=== PATIENT | female | born 1990 | race Caucasian/White ===

== ENCOUNTER 2021-06-22 01:12 | Day surgery (SDC) | payer OTHER, SELFPAY ==
[2021-06-17 13:16] VITALS: BMI 51.6
--- NOTE | 2021-06-17 13:28 | PC.NURSE ---
Report to the Outpatient Waiting Room, entrance under the green pavilion located off [facility], at time 0900 on date _06/21/2021. OR Time: 1100. - You and your visitor will be asked a series of questions to screen for COVID 19 for your protection. - Only one visitor is allowed at this time. - The patient visitor is requested to leave or wait in car when not with patient. - A mask is required within the hospital. Patients may have clear liquids (water, carbonated beverages, clear teas, apple juice) until 3 hours prior to surgery with a maximum of 20 ounces. - No food from midnight until time of surgery - Infants may have breast milk until 4 hours before surgery, infant formula 6 hours prior to surgery. - Children will be allowed to drink immediately following surgery. If applicable, please bring a bottle or sippy cup to assist with drinking. Juice, water, soda, and popsicles are readily available. For infants on formula, please bring formula the day of surgery. Pacifiers are allowed. Take the following medications with a SIP of water the morning of surgery: Wellbutrin Medications to discontinue per physician __Vitamins/supplements Date to take last dose____3 days Please no make-up, nail greenlandic, hairspray, perfume, deodorant, or body powder the day of surgery. No jewelry (including any body piercings) or valuables the day of surgery, leave them at home. Please take a shower or bath the night before, or the morning of, surgery with an antibacterial soap. Wear comfortable, loose fitting clothing. Children are encouraged to wear pajamas. - Jewelry must be removed prior to entering the operating room. Rings and piercings that are not removed may be cut off. - The hospital will not accept responsibility for valuables. - Please leave all valuables, including medications, at home the day of surgery. If you are going home after surgery, a licensed water taxi driver must drive you home. - NO public transportation without another adult. - We recommend that an adult stay with you for 24 hours following discharge. - We also recommend that you do not drive, make important decision, drink alcoholic beverages, or take any drugs that were not prescribed by your health care provider for at least 24 hours after your discharge time. For Pediatric surgeries, we recommend two adults accompany the child home (only one inside the building at this time). Follow any additional instructions given to you from your surgeon. If you or anyone in your household have experienced Covid symptoms in the past week, please notify your surgeon or the nurse liaison at the phone number below for possible testing. Telephone instructions given to ____patient and asked if any additional questions and then verbalized understanding. Patient advised to call surgeon office or pre surgery nurse liaison [phone] if any additional questions.
[2021-06-22] VITALS (7 sets, daily range): BP systolic 125–135; BP diastolic 77–87; PULSE 72–122; RESP 14–16; TEMP 36.6; O2SAT 97–100
[2021-06-22] MEDS: LACTATED RINGERS 1,000 ML 30 ML IV CONT (09:30)
[2021-06-22] MEDS: ACETAMINOPHEN 500 MG TABLET 1000 MG PO (09:49)
--- NOTE | 2021-06-22 10:04 | PM.IMHP ---
H&P: HPI History of Present Illness Date/Time: 06/22/21 10:00 Aida is a 31yo G0, LMP 06/03/21 who presents for scheduled surgery due to a new perineal bump . The lesion was hard to palpation and noticed about 3 months ago, did grow in size and why she presented for biopsy. She reports it eva itches, briceño, gets tender, and does bleed a small amount. It was biopsied 05/22/21 which showed granulation tissue but low grade dysplasia could not be ruled out. She has continued to notice a little blood with wiping; has not grown since the biopsy. Chief Complaint: perineal lesion Review of Systems Review of Systems: All systems reviewed & are unremarkable except as noted in HPI and below (HPI) [facility] Past Medical History Medical History Anxiety Depression Family History Family History Grandparent Diabetes mellitus Family history of cardiovascular disease Cerebrovascular accident Father Family history of elevated blood lipids Mother Family history of kidney disease Mother No problems noted. 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 Gender identity (if verbalized by the patient): Female Sexual Orientation (if Verbalized by the Patient): Straight or Heterosexual Spiritual care concerns: No Meds Home Medications and Allergies Home Medications Medication Instructions Recorded Confirmed Type bupropion HCl 300 mg 24 hr tablet, 300 mg PO QAM 05/22/21 06/17/21 History extended release melatonin 3 mg PO HS PRN 06/17/21 06/17/21 History metronidazole 0.75 % vaginal gel 1 appful VAGINAL DAILY 7 Days #70 g 06/17/21 06/17/21 Rx prenat.vits,chidi,edu-[id number] 1 tablet PO DAILY 06/17/21 06/17/21 History [ Vitamin] Allergies Allergy/AdvReac Type Severity Reaction Status Date / Time No Known Allergies Allergy Verified 06/17/21 13:09 Exam Const: General: cooperative, healthy appearing and no acute distress Nutritional Appearance: obese Resp: Effort & Inspection: normal respiratory effort Cardio: Rate: regular rate GI: Inspection: normal to inspection GI Palp: No abdominal tenderness and Yes Soft to palpation : Other: deferred to OR Skin: General skin exam: normal color Neuro: General: patient oriented x3 Extrem: General: normal to inspection Psych: Appearance: grossly normal Affect: normal affect Attitude: cooperative Assessment and Plan Assessment and plan (1) Perineal mass in female: Code(s): N90.89 - Other specified noninflammatory disorders of vulva and perineum Status: Acute Additional Plan - Proceed with left sided perineal wide local excision to remove the mass - Risks and benefits explained in detail and questions answered.
--- NOTE | 2021-06-22 10:04 | WPDHPUPDATE1 ---
History and Physical Update Update Date/Time: 06/22/21 10:04 History and Physical has been reviewed, including an updated exam of the patient. There are NO changes in the patient's condition. Risks, benefits, and alternatives have been discussed and questions answered. Patient agrees to proceed with procedure.
--- NOTE | 2021-06-22 10:11 | P.PNAN_ITS ---
Anes - Initial Pre Proc Eval Procedure: Operation Date: 06/22/21 11:00 Proposed Procedures p Excision Perineal Lesion - Mona Huffman MD Date/Time: 06/22/21 10:11 Surgeon: Mona Huffman MD Pre Op Diagnosis: perineal lesion Patient Data Age: 31 Gender: F Height: 1.63 m Weight: 136.8 kg Allergies Allergy/AdvReac Type Severity Reaction Status Date / Time No Known Allergies Allergy Verified 06/22/21 10:05 Home Medications Medication Instructions Recorded Confirmed Type bupropion HCl 300 mg 24 hr tablet, 300 mg PO QAM 05/22/21 06/22/21 History extended release melatonin 3 mg PO HS PRN 06/17/21 06/22/21 History metronidazole 0.75 % vaginal gel 1 appful VAGINAL DAILY 7 Days #70 g 06/17/21 06/22/21 Rx prenat.vits,chidi,avm-[id number] 1 tablet PO DAILY 06/17/21 06/22/21 History [ Vitamin] Patient hx anesthesia problems: none Family hx anesthesia problems: none Results Review: All pre-operative results and documents have been reviewed as part of the pre-operative evaluation. [facility] Past Medical History Medical History Anxiety Depression Family History Family History Grandparent Diabetes mellitus Family history of cardiovascular disease Cerebrovascular accident Father Family history of elevated blood lipids Mother Family history of kidney disease Mother No problems noted. 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 Gender identity (if verbalized by the patient): Female Sexual Orientation (if Verbalized by the Patient): Straight or Heterosexual Spiritual care concerns: No Anes - Eval Final PreProcedure Day of Procedure 06/22/21 10:11 Patient weight: super morbidly obese Heart: regular rate and rhythm Lungs: clear to auscultation and normal air movement Airway: Mallampati scale class II Neurological: alert and oriented Last oral intake: >/= 8 hours ASA classification: III Emergent: no Anesthetic plan: proceed Anesthesia type and monitoring: general GIVS and LMA and standard monitoring Results Review: All pre-operative results and documents have been reviewed as part of the pre-operative evaluation. Informed Consent: The patient's anesthetic plan and its attendant risks and benefits were discussed with the patient/family/POA. Questions were solicited and answers provided to the satisfaction of the patient/family/POA.
[2021-06-22] MEDS: metroNIDAZOLE 500 MG/ISO 100ML 500 MG/100 ML BAG 100 MG IVPB (11:19)
[2021-06-22] MEDS: KETOROLAC 30 MG/ML VIAL (*BKC) IV PUSH (11:34)
--- NOTE | 2021-06-22 12:22 | W.PM.PROC2 ---
Procedure Note - Detailed Date of Procedure 06/22/21 Pre-op Diagnosis Perineal lesion Post-op Diagnosis Other (Perianal abscess) Procedure Performed Perineal wide local excision Surgeon Mona Huffman MD Anesthesia General Indications Aida is a 31yo G0, LMP 06/03/21 who presents for scheduled surgery due to a new perineal bump . The lesion was hard to palpation and noticed about 3 months ago, did grow in size and why she presented for biopsy. She reports it eva itches, briceño, gets tender, and does bleed a small amount. It was biopsied 05/22/21 which showed granulation tissue but low grade dysplasia could not be ruled out. She has continued to notice a little blood with wiping; has not grown since the biopsy Findings Left perineal lesion measuring 0.8x1cm, fleshy in nature; 5mm margins obtained. Purulent discharged noted. Perianal abscess that extended into pts left buttock, ~20cc of purulent discharge expressed. Perianal abscess track copiously irrigated with saline. Good hemostasis. 10cc of 0.5% lidocaine plain placed for better pain control at end of case. 4 stay sutures were placed to help keep incision approximated Description of Procedure Aida was taken to the operating room where she was placed under general anesthesia without complications. She was then prepped and draped in the usual sterile fashion in the dorsal lithotomy position with her legs in low Marciano stirrups. A time-out was performed and she was given a Flagyl 500 mg IV once when purulent discharge was noted from the lesion. The perineal lesion was measured and marked for wide local excision. Using a 15 blade the excision was made in the skin in an elliptical pattern removing the perineal lesion. The edges were cauterized using Bovie cautery. The excised skin was grasped using Allis clamps and the underlying tissues was removed using the scalpel. More purulent discharge was noted and the area was probed. The lesion tract towards her left buttock approximately 2-3 cm and approximally 20 cc of purulent discharge was removed. The abscess was irrigated using over 200 cc of saline. My gloves were changed. The incision was made hemostatic using bovie cautery. The deeper edges of the incision was reapproximated using 2 0 Vicryl. The skin was then reapproximated using 3-0 Vicryl. Four stay sutures using 2-0 Prolene were placed over the incision. The incision was then infiltrated using 10cc of 0.5% plain Marcaine. Sponge, lap, instrument, and needle counts were correct at the end of the procedure. Patient tolerated the procedure well and was awoken from general anesthesia. She was taken to recovery with plans of same-day discharge home. She will be sent home on Augmentin twice daily for a week until she follows up in clinic. Estimated Blood Loss -30.0 Drains No Packing No Pathology Yes Complications No immediate complications Condition Stable Disposition Same day [facility] Billing Surgery - Charge Forward: Surgery Billing
== END 2021-06-22 13:50 | disposition home or self-care (01) ==
PROVIDERS: PCP Student in an Organized Health Care Education/Training Program; Visit Provider Obstetrics & Gynecology
PROC: (CPT 11424; principal; 2021-06-22 11:00)
DX: L02.215 Cutaneous abscess of perineum (principal); F41.8 Other specified anxiety disorders; E66.01 Morbid (severe) obesity due to excess calories; Z68.43 Body mass index [BMI] 50.0-59.9, adult
CPT/HCPCS: 11424; 12042; 88304; 88305; A9270; J1100; J1885; J2250; J2405; J2704; J3010; J7120

== ENCOUNTER 2021-12-28 23:13 | Emergency (ER) | payer OTHER, SELFPAY ==
--- NOTE | ~2021-12-28 | CT_ITS ---
EXAMINATION: CTA chest PE abdomen pel DATE: 12/29/2021 03:17 INDICATION: Chest pain, shortness of breath and upper abdominal pain. TECHNIQUE: Computed tomography (CT) pulmonary angiogram of the chest was performed with 100 mL Omnipa que-350 intravenous contrast. Additional 3D reconstructions utilizing coronal maximum intensity proje ction (MIP) were performed. CT of the abdomen and pelvis was performed with intravenous contrast util izing the same contrast bolus following a short delay. Automated exposure control and iterative recon struction technique were employed. The dose-length product was 2414.40 mGy-cm. COMPARISON: None FINDINGS: Chest: Excellent contrast opacification of the pulmonary arteries. There is moderate streak artifact from de nse contrast in the superior vena cava and right atrium. Mild scattered respiratory motion artifact w hich does not significantly limit evaluation. No pulmonary embolism. Lungs are clear with no pneumoni a, pulmonary edema or pleural effusion. Heart size is normal. No pericardial effusion. Thoracic aorta is normal in caliber with no dissection. No pathologically enlarged thoracic lymphadenopathy. Abdomen/pelvis: Suture line along the greater curvature of the stomach consistent with prior sleeve gastrectomy. Live r, gallbladder, spleen, pancreas, bilateral adrenal glands and kidneys are normal. Bowels including t he appendix are normal. Bladder, anteverted uterus and bilateral adnexa are unremarkable. No free int raperitoneal gas or fluid. No pathologically enlarged abdominal or pelvic lymphadenopathy. Moderate t o severe disc height loss with degenerative endplate changes at L5-S1. Bones are otherwise unremarkab le. IMPRESSION: 1. No pulmonary embolism or other acute cardiopulmonary disease. 2. No acute intra-abdominal/pelvic process. Reviewed, dictated and finalized at location A. [employer] CONS[employer]ANT
--- NOTE | ~2021-12-28 | XR_ITS ---
EXAMINATION: XR chest 2V DATE: 12/29/2021 02:13 INDICATION: Chest pain, shortness of breath TECHNIQUE: PA and lateral views of the chest were obtained. COMPARISON: None FINDINGS: The lungs are clear with no focal airspace opacities, pulmonary edema, pleural effusion or pneumothor ax. The cardiomediastinal silhouette is normal. Visualized bones and soft tissues are unremarkable. IMPRESSION: 1. No acute cardiopulmonary disease. Reviewed, dictated and finalized at location A. 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
[2021-12-28 23:15] VITALS: BP 151/84; PULSE 100; RESP 14; TEMP 36.6; O2SAT 100
[2021-12-28 23:28] LABS: Basophils Percent Auto 0.4 % (0.2-1.2); Eosinophils Absolute Auto 0.1 K/mm3 (0-0.3); Eosinophils Percent Auto 1.6 % (0-4.4); Hematocrit 39.6 % (37.0-47.0); Hemoglobin 12.9 g/dL (12.0-15.0); Immature Granulocyte Absolute 0.02 K/mm3 (0.00-0.031); Immature Granulocyte Percent A 0.3 % (0-0.5); Lymphocytes Absolute Auto 2.42 K/mm3 (0.9-3.2); Lymphocytes Percent Auto 31.3 % (18.3-44.2); Mean Corpuscular HGB Conc 32.6 g/dl (32-36); Mean Corpuscular Hemoglobin 29.5 pg (26-34); Mean Corpuscular Volume 90.6 fl (80-100); Mean Platelet Volume 10.1 fl (7.4-10.4); Monocytes Absolute Auto 0.9 K/mm3 (0.1-0.6); Monocytes Percent Auto 11.9 % (2.6-8.5); Neutrophils Absolute Auto 4.2 K/mm3 (1.3-6.7); Neutrophils Percent Auto 54.5 % (45.5-73.1); Platelet Count Result 263 k/mm3 (150-375); Red Blood Count 4.37 M/mm3 (4.2-5.4); White Blood Count 7.7 K/mm3 (4.5-10.0)
[2021-12-28 23:38] LABS: Alanine Aminotransferase 104 U/L (6-35); Albumin Level 4.5 g/dL (3.5-5.1); Alkaline Phosphatase 91 U/L (38-126); Anion Gap 14 mmol/L (8-16); Aspartate Amino Transferase 52 U/L (14-36); Bilirubin,Total 0.6 mg/dL (0.2-1.3); Blood Urea Nitrogen 8 mg/dL (7-17); Calcium 9.6 mg/dL (8.4-10.2); Carbon Dioxide 21 mmol/L (22-30); Chloride 104 mmol/L (98-107); Estimated CRCL calculation 134 ml/min; Estimated Glomerular Filt Rate > 60; Glucose 105 mg/dL (65-110); Lipase 87 U/L (23-300); Potassium 3.7 mmol/L (3.4-5.0); Sodium 139 mmol/L (137-145)
--- NOTE | 2021-12-29 00:37 | ECG_ITS ---
Measurements Intervals Belle Rate: 78 P: 0 MI: 124 QRS: 12 QRSD: 99 T: 5 QT: 352 QTc: 402 Interpretive Statements SINUS RHYTHM WITH SINUS ARRHYTHMIA NORMAL ECG NO PREVIOUS ECG AVAILABLE FOR COMPARISON Electronically Signed On 12-29-2021 6:51:47 NANOTECHNOLOGY TECHNICIAN by Magan Mackay D.O.
--- NOTE | 2021-12-29 00:38 | ED.ABDPAIN ---
HPI - Abdominal Pain General Chief Complaint: Abdominal Pain <ENZO Davila Last Filed: 12/29/21 03:13> Stated Complaint: Abd pain post op three weeks <ENZO Davila Last Filed: 12/29/21 03:13> Time Seen by Provider: 12/29/21 00:14 <ENZO Davila Last Filed: 12/29/21 03:13> History of Present Illness HPI narrative: Patient is a 31-year-old female here for evaluation of upper abdominal pain for the past day and a half. Patient describes the pain as sharp but also like a pressure in the upper abdomen. Pain has been relatively constant but is worse after eating. Also notes nausea, bloating sensation, and radiation of the pain into her chest. The chest pain is worse with deep breaths. She spoke with her surgeon Dr. Manley at [facility], who recommended ED evaluation if her pain persisted after Protonix. Denies leg swelling, calf pain, fevers or chills, diarrhea or constipation. <ENZO Davila Last Filed: 12/29/21 03:13> Related Data Home Medications: Home Medications Medication Instructions Recorded Confirmed bupropion HCl 300 mg 24 hr tablet, 300 mg PO QAM 05/22/21 06/29/21 extended release (Wellbutrin XL) prenat.vits,chidi,spf-[id number] 1 tablet PO DAILY 06/17/21 06/29/21 <ENZO Davila Last Filed: 12/29/21 03:13> Allergies/Adverse Reactions: Allergies Allergy/AdvReac Type Severity Reaction Status Date / Time No Known Allergies Allergy Verified 12/29/21 00:23 <ENZO Davila Last Filed: 12/29/21 03:13> Review of Systems Review of Systems: Gen: Denies fevers or chills Eyes: Denies eye pain or visual change ENT: Denies congestion Respiratory: Reports shortness of breath. Denies cough CV: Reports chest pain. Denies palpitations GI: Reports abdominal pain and nausea. : denies burning, urgency, frequency or hematuria Musculoskeletal: Denies back pain or muscle pain Neuro: Denies numbness, tingling, weakness or focal weakness Skin: Denies rash Except as documented, all other systems reviewed and negative <Moni Sepulveda PA-C - Last Filed: 12/29/21 03:13> PMFSH Past Medical History Medical History: Medical History Anxiety Depression <Moni Sepulveda PA-C - Last Filed: 12/29/21 03:13> Family History Family History: Family History Grandparent Diabetes mellitus Family history of cardiovascular disease Cerebrovascular accident Father Family history of elevated blood lipids Mother Family history of kidney disease Mother No problems noted. 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 Obese. Head: Normocephalic and atraumatic. EYES: PERRLA/EOMI, conjunctivae clear NOSE: No nasal drainage EARS: External ear normal in appearance THROAT: Oropharynx is clear. Mucous membranes are moist. NECK: Supple. No adenopathy, no masses. RESPIRATORY: Airway patent, respirations nonlabored. Clear to auscultation bilaterally, no rales, rhonchi, wheezing. CARDIOVASCULAR: Regular rate and rhythm without murmurs, rubs, or gallops. ABDOMINAL: Tender to palpation in the epigastric region with no rebound tenderness or guarding. Normoactive hugo
[2021-12-29 00:45] LABS: Appearance Urine Slightly Cloudy (Clear); Bilirubin Urine 2+ (Negative); Blood Urine Negative (Negative); Color Urine Yellow (Yellow); Glucose Urine UA Negative (Negative); Ketones Urine 4+ mg/dL (Negative); Leukocyte Esterase Ur 1+ LEU/UL (Negative); Nitrate Urine Negative (Negative); Protein Urine Negative (Negative); Specific Grav Ur >= 1.030 (1.001-1.035); Urobilinogen Urine 0.2 mg/dL (<2.0); pH Urine 5.5 (5.0-9.0)
[2021-12-29 00:53] LABS: Bacteria Urine Trace /hpf; Mucus Urine Moderate /lpf; Squamous Epithelial Cell Urine Many /hpf (Few); WBC Urine 16-20 /hpf
[2021-12-29 00:59] LABS: Add Urine Microscopic? YES
[2021-12-29] MEDS: SODIUM CHLORIDE 0.9% IV 1,000 ML 999 ML IV CONT (02:09)
[2021-12-29 02:40] LABS: Troponin I < 0.012 ng/mL (0.000-0.034)
[2021-12-29 03:54] LABS: INR 1.1; Prothrombin Time 14.1 Seconds (11.1-14.7)
[2021-12-29 03:55] LABS: Partial Thromboplastin Time 32.6 SECONDS (22.3-36.8)
== END 2021-12-29 04:56 | disposition home or self-care (01) ==
PROVIDERS: Physician Assistant; Emergency Provider Emergency Medicine; PCP Student in an Organized Health Care Education/Training Program
DX: R10.10 Upper abdominal pain, unspecified (principal); Z98.84 Bariatric surgery status
CPT/HCPCS: 36415; 71046; 71275; 74177; 80053; 81001; 81025; 83690; 84484; 85025; 85380; 85610; 85730; 87086; 87088; 93005; 96360; 99284; J7030; Q9967